=== PATIENT | male | born 1940 | race Asian ===

== ENCOUNTER 2017-02-10 11:21 | Day surgery (SDC) | payer OTHER ==
--- NOTE | 2017-02-10 13:15 | HP ---
History & Physical Update - History History: No Change - Physical Physical: No Change - Assessment Assessment: No Change - Plan Plan: No Change
--- NOTE | 2017-02-10 13:16 | OP ---
Operative Note - Note: Operative Date: 02/10/17 Pre-Operative Diagnosis: BPH w LUTS Operation: bipolar TURP Findings: BPH Post-Operative Diagnosis: Same as Pre-op Surgeon: Yong Jurado Anesthesiologist/SECRETARY TO BOARD OF COMMISSIONERS: Mariel Paniagua MD Anesthesia: General Specimens Removed: prostate tissue Drains & Tubes with Location: [address] 30 ml montalvo Operative Report Dictated: Yes
[2017-02-10] MEDS ORDERED: LIDOCAINE HCL/PF 2% SDV 5ML VIAL ONE (13:17)
[2017-02-10] MEDS ORDERED: PROPOFOL 20 ML ONE (13:17)
[2017-02-10] MEDS ORDERED: SUCCINYLCHOLINE CHLORIDE 200 MG/10 ML VIAL ONE ×2 (13:20→13:21)
[2017-02-10] MEDS ORDERED: ceFAZolin SODIUM 1 GM VIAL IVPB ONE (13:22)
[2017-02-10] MEDS ORDERED: ceFAZolin SODIUM 1 GM VIAL ONE ×2 (13:26→21:13)
[2017-02-10] MEDS ORDERED: ONDANSETRON 4 MG/2 ML VIAL IVPUSH PRN (13:34)
[2017-02-10] MEDS ORDERED: DEXAMETHASONE SOD PHOSPHATE 4 MG/1 ML VIAL ONE (14:08)
[2017-02-10] MEDS ORDERED: ACETAMINOPHEN 325 MG TABLET (FP) PO PRN (14:38)
[2017-02-10] MEDS ORDERED: oxyCODONE HCL 5 MG TABLET PO PRN (14:38)
[2017-02-10] MEDS ORDERED: ONDANSETRON 4 MG/2 ML VIAL ONE (14:51)
[2017-02-10] MEDS ORDERED: CEFAZOLIN 1 GM in DEXTROSE 5%-WATER - 50 ML IVPB SCH ×2 (18:00→18:54)
[2017-02-10] MEDS ORDERED: DEXTROSE 5%-WATER - 50 ML IVPB ONE (21:14)
[2017-02-10] MEDS: CEFAZOLIN 1 GM in DEXTROSE 5%-WATER - 50 ML IVPB SCH (21:49)
[2017-02-11] MEDS ORDERED: ceFAZolin SODIUM 1 GM VIAL ONE (06:15)
[2017-02-11] MEDS ORDERED: DEXTROSE 5%-WATER - 50 ML IVPB ONE (06:15)
[2017-02-11] MEDS: CEFAZOLIN 1 GM in DEXTROSE 5%-WATER - 50 ML IVPB SCH (06:25)
[2017-02-11 07:44] LABS: MCH 34.4 pg (25.7-33.7); MCHC 34.4 g/dl (32.0-35.9); MEAN CELL VOLUME 99.8 fl (80-96); MEAN PLT VOLUME 6.7 fl (7.5-11.1); PLATELET COUNT 221 K/MM3 (134-434); RDW 13.1 % (11.9-15.9); WHITE BLOOD COUNT 15.8 K/mm3 (4.0-10.0)
[2017-02-11 07:51] LABS: ANION GAP 9 (8-16); CALCIUM 8.6 mg/dL (8.5-10.1); CO2 24 mmol/L (21-32); GLUCOSE,RANDOM 143 mg/dL (74-106)
[2017-02-11 09:05] VITALS: BP 114/66; PULSE 56; TEMP 98.3
[2017-02-11] MEDS ORDERED: FOLIC ACID 1 MG TABLET (FP) PO SCH (10:00)
[2017-02-11] MEDS ORDERED: VALSARTAN 160 MG TABLET (UD) PO SCH (10:00)
[2017-02-11] MEDS ORDERED: amLODIPine BESYLATE 10 MG TABLET (FP) PO SCH (10:00)
[2017-02-11] MEDS ORDERED: HYDROCHLOROTHIAZIDE 12.5 MG CAPSULE (FP) PO SCH (10:00)
[2017-02-11] MEDS ORDERED: FINASTERIDE 5 MG TABLET (FP) PO SCH (10:00)
[2017-02-11] MEDS ORDERED: ATENOLOL 25 MG TABLET (FP) PO SCH (10:00)
--- NOTE | 2017-02-11 13:42 | OP ---
DATE OF OPERATION: 02/10/2017 PREOPERATIVE DIAGNOSIS: Benign prostatic hypertrophy with lower urinary tract symptoms. POSTOPERATIVE DIAGNOSIS: Benign prostatic hypertrophy with lower urinary tract symptoms. PROCEDURE: Bipolar TURP. SURGEON: Yong Jurado MD NICKEL OPERATOR: None. ANESTHESIA: General via laryngeal mask. ANESTHESIOLOGIST: Mariel Paniagua MD SPECIMENS: Prostate chips. CULTURES: None. DRAINS: A 22-Spanish 3-way Wells catheter, 30 mL balloon. ESTIMATED BLOOD LOSS: Negligible. COMPLICATIONS: None. DESCRIPTION OF PROCEDURE: Patient was brought in the operating room, placed on the operating table in supine position. After administration of general anesthesia via laryngeal mask, patient was positioned in the dorsal lithotomy position. The genitals and perineum were prepped and draped in usual sterile manner. The 26-Spanish bipolar resectoscope was inserted into the bladder with the visualizing obturator. Anterior urethra was normal. The prostatic urethra measured approximately 5 cm in length and demonstrated [id number] bilobar occlusion. The bladder was entered and thoroughly inspected. There were no foreign bodies, tumors, stones, inflammation. Both ureteral orifices were in their usual location with clear efflux bilaterally. There was 1+ bladder trabeculation. Now, the working element of the Manzano resectoscope was inserted, and the TURP was performed in the standard fashion by first creating a groove in the left lateral lobe at the 2 o'clock position from the area of the bladder neck to the verumontanum, down to the level of the capsular fibers. The left lateral lobe of the prostate was then sequentially resected from the 2 o'clock to the 6 o'clock position, from the area of the bladder neck to the verumontanum, down to the level of the capsular fibers. In a similar manner, the right lateral lobe of the prostate was resected. The roof and the floor of the prostate were resected. All resected prostatic tissue was removed from the bladder using an Ellik evacuator. Hemostasis was assured with electrocautery. Once all the obstructive tissue was resected and hemostasis assured, the bladder was left full and the resectoscope removed. A number 22-Spanish 3-way Wells catheter was inserted in the bladder; 30 mL were placed in the balloon and placed on continuous bladder irrigation. Return minimally blood tinged. He tolerated the procedure well, transferred to the recovery room in stable condition. YONG JURADO M.D. BOLIVAR/[id number]
--- NOTE | 2017-02-12 15:09 | PATH ---
Surgical Pathology Report Patient Name: LISA CONTRERAS [facility]. Rec. #: [id number] /Age/Gender: 1940 (Age: 76) / M Account: [id number] Location: [facility] SURGICAL Taken: 02/10/2017 Received: 02/11/2017 Reported: 02/12/2017 Physicians: Yong Jurado M.D. Specimen(s) Received PROSTATE CHIPS Clinical History BPH Final Diagnosis PROSTATE, TUR: BENIGN PROSTATIC HYPERPLASIA WITH AREAS OF ATROPHY. Electronically Signed Scott Self M.D. Gross Description Received in formalin labelled "prostate tissue" is an 18 gram, 8 x 7 x 2 cm aggregate of rubbery pink and cordero tissue fragments. No yellow or indurated areas are identified. A sales representative uniforms portion is submitted in 10 cassettes. [facility]/02/11/2017 [facility]/02/11/2017
== END 2017-02-11 10:09 | disposition home or self-care (01) ==
LOC: JASU-SURG 11:21 → J8W 16:44 → JASU-SURG 02-11 10:09
PROVIDERS: ATTEND Urology
PROC: 0TJB8ZZ Inspection of Bladder, Via Natural or Artificial Opening Endoscopic (ICD-10-PCS; 2017-02-10)
PROC: 0VT08ZZ Resection of Prostate, Via Natural or Artificial Opening Endoscopic (ICD-10-PCS; principal; 2017-02-10 13:00)
DX: N40.1 Benign prostatic hyperplasia with lower urinary tract symptoms (principal)
CPT/HCPCS: 36415; 80048; 85027; 88305-TC; 94760